=== PATIENT | female | born 1970 | race Caucasian/White ===

== ENCOUNTER 2017-09-14 05:59 | Day surgery (SDC) | payer OTHER ==
[2017-09-14] MEDS ORDERED: CEFAZOLIN 2 GM/50 ML (PMX) 50 ML IVPB (06:30)
[2017-09-14] MEDS ORDERED: SOD CHLORIDE 0.9% 1,000 ML IV (06:30)
[2017-09-14] MEDS ORDERED: BUPIVACAINE 0.25% (MPF) 30 ML INJ (08:48)
[2017-09-14] MEDS ORDERED: PROPOFOL 20 ML (08:57)
[2017-09-14] MEDS ORDERED: CEFAZOLIN 1 GM INJ (08:57)
[2017-09-14] MEDS ORDERED: ROCURONIUM 50 MG INJ (08:57)
[2017-09-14] MEDS ORDERED: NEOSTIGMINE 3 MG/3 ML SYRINGE (08:57)
[2017-09-14] MEDS ORDERED: GLYCOPYRROLATE 0.4 MG INJ (08:57)
[2017-09-14] MEDS ORDERED: MIDAZOLAM 1 MG/ML 2 ML INJ (08:57)
[2017-09-14] MEDS ORDERED: DEXAMETHASONE 4 MG/ML 1 ML INJ (08:58)
[2017-09-14] MEDS ORDERED: FENTAnyl 50 MCG/ML VIAL ×2 (08:58→09:58)
[2017-09-14] MEDS ORDERED: ONDANSETRON 4 MG INJ (08:58)
[2017-09-14] MEDS: BUPIVACAINE 0.25% (MPF) 30 ML INJ INJ (09:57)
[2017-09-14] MEDS: POLYMYXIN/BACITRACIN 1L IRRIG (09:58)
[2017-09-14] MEDS ORDERED: TRIMETHOBENZAMIDE 100 MG/ML VIAL IM (10:00)
[2017-09-14] MEDS ORDERED: MEPERIDINE 25 MG INJ IV (10:00)
[2017-09-14] MEDS ORDERED: ALBUTEROL 0.083% (NEB) 2.5 MG/3 ML AMP HHN (10:00)
[2017-09-14] MEDS ORDERED: MIDAZOLAM 1 MG/ML 2 ML INJ IV (10:00)
[2017-09-14] MEDS ORDERED: EPHEDrine SULFATE 50 MG/5 ML SYG IV (10:00)
[2017-09-14] MEDS ORDERED: HYDROmorphONE (0.2 MG/ML) 10ML SYG IV ×2 (10:00)
[2017-09-14] MEDS ORDERED: hydrALAzine 20 MG INJ IV (10:00)
[2017-09-14] MEDS ORDERED: IPRATROPIUM (NEB) 0.5 MG/2.5 ML AMP HHN (10:00)
[2017-09-14] MEDS ORDERED: FENTAnyl 50 MCG/ML VIAL IV ×2 (10:00)
[2017-09-14] MEDS ORDERED: OXYCODONE/ACETAMINOPHEN (5/325) TAB PO (10:00)
[2017-09-14] MEDS ORDERED: LABETALOL HCL 20MG INJ IV (10:00)
[2017-09-14] MEDS: ONDANSETRON 4 MG INJ IV (10:17)
[2017-09-14] MEDS: FENTAnyl 50 MCG/ML VIAL IV ×2 (10:17→10:34)
[2017-09-14] MEDS: OXYCODONE/ACETAMINOPHEN (5/325) TAB PO (10:21)
[2017-09-14] MEDS: DIPHENHYDRAMINE 50 MG INJ IV (10:35)
[2017-09-14] MEDS: HYDROmorphONE (0.2 MG/ML) 10ML SYG IV (11:58)
[2017-09-14] MEDS: HYDROCODONE/APAP (5/325) TAB PO (12:56)
== END 2017-09-14 13:45 | disposition home or self-care (01) ==
LOC: SDS 05:59
DX: K43.0 Incisional hernia with obstruction, without gangrene (principal); I10 Essential (primary) hypertension
CPT/HCPCS: 49655